=== PATIENT | male | born 2000 | race Caucasian/White ===

== ENCOUNTER 2025-02-11 02:13 | Observation (INO) | payer OTHER, SELFPAY ==
[2025-02-10 23:31] VITALS: BP 114/80; BMI 24.8
[2025-02-10 23:34] VITALS: BP 114/80
[2025-02-10 23:50] LABS: Hematocrit 41.6 % (39.0-52.0); Hemoglobin 15.1 g/dL (13.0-18.0); Mean Corp Hgb Conc. 36.3 g/dL (33.0-37.0); Mean Corpuscular Volume 90.2 fL (80.0-94.0); Nucleated Red Blood Cells % 0 % (-); Platelet Count 246 10^3/uL (130-400); Red Cell Dist. Width 12.0 % (11.5-14.5)
[2025-02-11 00:05] LABS: Blood Urea Nitrogen 13 mg/dl (9-20); Calcium 9.5 mg/dl (8.4-10.2); Carbon Dioxide 21 mmol/L (22-30); Chloride 102 mmol/L (98-107); Estimated Creatinine Clearance > 125 ml/min; Glucose 116 mg/dl (70-99); Lipase 253 U/L (23-300); Sodium 133 mmol/L (135-145); eGFR > 60.00
--- NOTE | 2025-02-11 00:08 | ED.GENMED ---
History of Present Illness
General
Chief Complaint: Abdominal Symptoms
Source: patient
Exam Limitations: none
Time Seen by Provider: 02/10/25 23:45
History of Present Illness
History of Present Illness:
See MDM
Past History
Past History
ED Past Medical History: Asthma
ED Past Surgical History: None
Social History
Tobacco: Vaping
Alcohol: None
Drug: None
Phy Exam
Physical Exam
Physical Exam:
See MDM
Course
Orders/Labs/Results
Orders:
Orders
02/10/25 23:40
EKG [Electrocardiogram (*1)] Urgent
Reason for Study: Tachycardia
EKG- Treatment ONCE
02/10/25 23:42
Basic Metabolic Panel Urgent
Complete Blood Count/With Diff Urgent
Lipase Urgent
02/10/25 23:58
STOOL [C difficile Antigen & Toxins] Urgent
DARIA Source: Feces/Stool
Specimen Description:
Date Specimen was Collected: 02/11/25
Time Specimen was Collected: 00:00
Stool Culture Urgent
DARIA Source: Feces/Stool
Specimen Description:
Date Specimen was Collected: 02/11/25
Time Specimen was Collected: 00:00
Abnormal Lab Results
02/10/25
23:42
WBC 13.6 H 10^3/uL
(4.8-10.8)
RBC 4.61 L 10^6/uL
(4.70-6.10)
MCH 32.8 H pg
(27.0-31.0)
Abs Immat Gran (auto) 0.2 H 10^3/uL
(0-0.05)
Absolute Neuts (auto) 10.1 H 10^3/uL
(1.4-6.5)
Absolute Monos (auto) 0.8 H 10^3/uL
(0.1-0.6)
Immature Gran % 1.1 H %
(0-0.5)
Lymphocytes % 16.5 L %
(20.5-51.1)
Sodium 133 L mmol/L
(135-145)
Carbon Dioxide 21 L mmol/L
(22-30)
Glucose 116 H mg/dl
(70-99)
02/10/25 23:42
02/10/25 23:42
Vital Signs
Initial and Last Documented VS:
Initial Vital Signs
Pulse Resp BP Pulse Ox
61 16 114/80 100
02/10/25 23:31 02/10/25 23:31 02/10/25 23:31 02/10/25 23:31
Last Documented Vital Signs
Pulse Resp BP Pulse Ox
61 16 114/80 100
02/10/25 23:31 02/10/25 23:31 02/10/25 23:31 02/11/25 00:14
MDM/Problems Addressed
Differential Diagnosis Includes:
HPI and MDM Narrative:
25-year-old male presenting for evaluation of diaphoresis and diarrhea. Soon after eating food at [facility], patient developed abdominal cramping which was followed by nausea, vomiting and diarrhea. Apparently, patient was tachycardic. There was
questionable SVT but this was not proven. Regardless, it self resolved. On arrival, patient states he is feeling a lot better
Patient has a very soft and nontender abdomen. I discussed with patient and father at bedside that this is less likely acute appendicitis given how well-appearing he is and how benign his abdominal exam is. Given the sudden onset of nausea and
vomiting and diarrhea after food ingestion, we discussed the possibility of food poisoning. He denies sick contacts. Will obtain basic blood work and obtain stool studies
Physical exam
General: Well appearing and non-toxic
HEENT: protecting airway
Neck: appears supple
CV: No evidence of cyanosis. Regular rate and rhythm
Resp: No accessory muscle use
Abd: Non-distended. Soft and nontender
Extremities: No deformities
Neuro: alert
Psych: Normal affect
Skin: Intact
Problems Addressed including Acute and Chronic Conditions affecting care:
1. Nausea, vomiting, diarrhea
Acuity: acute
Prognosis: stable
Details: Given the sudden onset after food ingestion, discussed likely food poisoning. Will obtain basic blood work and provide IV fluids
Updates
12:10 AM after defecating, patient became diffusely diaphoretic. He continues to have a nontender abdomen. We discussed some sort of autonomic response to his diarrhea. Will continue to monitor
During his stay, his heart rate continues to drop to the 30s. Patient states he feels unwell. It does appear to be sinus rhythm. Given his persistent symptoms, will continue IV fluids and admit for telemetry monitoring
Differential Diagnosis (but not limited to): Food poisoning, colitis, acute appendicitis
Testing considered: CT abdomen/pelvis
Drug therapy (if applicable): OTC meds, please see d/c instruction regarding Rx drugs
Amount and/or Complexity of Data Reviewed
Clinical info obtained from: Patient
External data reviewed: N/A
Labs I independently reviewed (but not limited to): Expected leukocytosis
Radiology: N/A
Pulse Ox: not hypoxic
EKG independently reviewed: Sinus rhythm, normal axis, no STEMI
Ophthalmic Aide: Sinus rhythm
Critical Care: N/A
Risk of Complication:
Social Determinants of health: Good social support
Discussed with other providers: Hospitalist
Escalation of Care includes Admit/Obs: Given his persistent symptoms and intermittent bradycardia, will admit
Occasional wrong word or 'sound a like' substitutions may have occurred due to the inherent limitations of voice recognition software. Read the chart carefully and recognize, using context, where substitutions have occurred.
*Pulse Oximetry
SaO2: 100
Oxygen Mode of Delivery: Room air
Patient hypoxic: no
*Critical Care Note
Total Time (30-74mins, 75-104mins- exclusive of procedures): Not Applicable
ED Attending Note
-
Portions of this chart may have been created with voice recognition software.� Occasional wrong word or��sound alike� substitutions may have occurred due to the inherent limitations of voice recognition software.
Discharge Plan
Departure
Patient Disposition: Admit
Date of Disposition: 02/11/25
Time of Disposition: 01:44
Admit to: Med/Surg
Presentation/result/management discussed w/ accepting MD/DO: Hospitalist
Discharge Problem:
Nausea, vomiting and diarrhea, Bradycardia
Prescriptions:
No Action
ondansetron 4 MG tablet,disintegrating
4 mg PO TIDPRN PRN (Reason: nausea/vomiting) Qty: 9 0RF
cetirizine 10 MG tablet
10 mg PO DAILYPRN PRN (Reason: allergies)
fluticasone propionate 1 SPRAY spray,suspension
2 spray intranasal BIDPRN PRN (Reason: allergies)
Referrals:
Aisha Grider CRNP [Family Provider, Family Practice]
Interventions
Interventions:
*Risk Screen - Suicide Last Done: 02/10/25 23:31
*General Assessment Last Done: 02/10/25 23:31
*Neglect/Abuse Screening Last Done: 02/10/25 23:31
*ED- Fall Risk Assessment Last Done: 02/10/25 23:31
*ED COVID-19 Vaccine History Last Done: 02/10/25 23:31
Discharge Date and Time
Print Language: GEORGIAN
--- NOTE | 2025-02-11 02:05 | HPS.HSE ---
Family Physician
-
Family Physician: LEONOR Chan
Chief Complaint
-
N/V/D
History of Present Illness
Patient is a 25y M with PMH significant for anxiety and asthma who presents to ED complaining of N/V/D. Patient states that he went out for dinner this evening at [facility]. Her returned home and approximately 45-60 minutes following dinner he
developed sudden onset of nausea with multiple episodes of non-bloody emesis, crampy abdominal pain and frequent / loose stools. He became lightheaded and diaphoretic. His symptoms persisted and he presented to the ED for further evaluation and
treatment.
Medical History
Past Medical History
Past Medical History: Reports Other
Additional Past Medical History:
Anxiety / Depression
Asthma
Past Surgical History: Reports None
Social History
Tobacco: Former Smoker (Quit smoking 2-3 years ago. < 5 pack years total use.)
Alcohol: Occasional
Drug: Marijuana (Occasional.)
Family History
Family History: Not pertinent
Allergies / Home Medications
Allergies reflects when Allergies were last updated in [employer].
Home Medications with original date entered in [employer]
Allergy/Medication List:
Allergies
Allergy/AdvReac Type Severity Reaction Status Date / Time
Penicillins Allergy Rash Verified 02/10/25 23:44
Home Medications
escitalopram oxalate 10 mg tablet (Lexapro) 10 mg PO DAILY 02/11/25
montelukast 10 mg tablet 10 mg PO DAILY 02/11/25
Review of Systems
-
History Source: Patient
A 12 point ROS was completed and negative except as noted: Yes
Constitutional: Reports Fatigue; Denies Fever or Chills
EENT: Denies Sore Throat
Respiratory: Denies Cough or Trouble Breathing
Cardiac: Reports Diaphoresis; Denies Chest Pain or Palpitations
Abdomen/GI: Reports Abdominal Pain, Nausea, Vomiting and Diarrhea
: Denies Dysuria or Frequency
Musculoskeletal: Denies Joint Pain or Edema
Neurological: Denies Dizzy or Headache
Psych: Denies Depression or Anxiety
Physical Exam
Vital Signs
Vital Signs
Pulse Resp BP Pulse Ox
61 16 114/80 100
02/10/25 23:31 02/10/25 23:31 02/10/25 23:31 02/11/25 00:14
Physical Exam
General: Other (25y M in mild distress due to nausea / diaphoresis.)
HEENT: Other (Dry MM, neck supple.)
Respiratory: Clear; No Wheezes, Rales or Rhonchi
Cardiac: S1/S2 and Regular Rhythm; No Murmur
GI: Soft, Non Tender, Non Distended and Normal Bowel Sounds
Musculoskeletal: No Clubbing, No Cyanosis and No Edema
Neuro: AO x 3
Laboratory Results
-
02/10/25 23:42
Laboratory Results
Total Bilirubin Cancelled 02/10/25 23:42
AST Cancelled 02/10/25 23:42
ALT Cancelled 02/10/25 23:42
Alkaline Phosphatase Cancelled 02/10/25 23:42
Lipase 253 U/L (23-300) 02/10/25 23:42
Impression/Plan
-
A/P: Patient is a 25y M with PMH significant for asthma and anxiety who presents to ED complaining of N/V/D.
Acute Gastroenteritis
- Observe overnight for further evaluation and treatment.
- Suspected foodborne pathogen - though fairly quick onset after evening meal.
- Supportive care with IVFs, antiemetics, etc.
- Follow for clinical improvement.
- Follow-up results of stool cultures.
Bradycardia
Diaphoresis
- Likely vasovagal effect due to acute GI distress.
- Reportedly with heart rates into the 30s at times in the ED (verbal report from provider).
- Treat acute symptoms as noted above.
- Monitor on tele overnight.
Mild Intermittent Asthma
- Stable. Continue montelukast.
- Rare rescue inhaler use per patient. Albuterol PRN.
Anxiety / Depression
- Stable. Continue Lexapro.
DVT Prophylaxis: SCDs
Code Status: Full
[2025-02-11 02:48] LABS: Potassium 4.1 mmol/L (3.5-5.1)
[2025-02-11 03:18] VITALS: BP 104/73; BMI 24.0
--- NOTE | 2025-02-11 03:18 | PTCARENOTE ---
Pt arrived onto floor @0318. Pt AAOx3 and able to ambulate into room without assistance. Pt with no complaints of pain or SOB at this time. Pt oriented to room and call baker; will continue to monitor
[2025-02-11] MEDS: NSS 1000 IV ×2 (03:31→10:36)
[2025-02-11 06:36] LABS: Hematocrit 37.9 % (39.0-52.0); Hemoglobin 13.6 g/dL (13.0-18.0); Mean Corp Hgb Conc. 35.9 g/dL (33.0-37.0); Mean Corpuscular Volume 89.8 fL (80.0-94.0); Platelet Count 224 10^3/uL (130-400); Red Cell Dist. Width 11.8 % (11.5-14.5)
[2025-02-11 06:59] LABS: Blood Urea Nitrogen 10 mg/dl (9-20); Calcium 9.2 mg/dl (8.4-10.2); Carbon Dioxide 27 mmol/L (22-30); Chloride 107 mmol/L (98-107); Estimated Creatinine Clearance > 125 ml/min; Glucose 113 mg/dl (70-99); Potassium 5.5 mmol/L (3.5-5.1); Sodium 138 mmol/L (135-145); eGFR > 60.00
[2025-02-11 07:44] VITALS: BP 116/64
[2025-02-11] MEDS: LEXAPRO 10 MG PO (08:50)
[2025-02-11] MEDS: SINGULAIR 10 MG PO (08:50)
[2025-02-11 11:00] VITALS: BP 104/61; BP 108/52; BP 110/59; PULSE 52; PULSE 60; PULSE 68
--- NOTE | 2025-02-11 13:48 | W.PN.HOSP.TC ---
Today's Communication/Plan
-
dc to home later today
Assessment / Plan
Assessment / Plan
assessment:
Acute Gastroenteritis
- Suspected foodborne pathogen - though fairly quick onset after evening meal.
- Supportive care with IVFs, antiemetics, etc.
- diet: BRAT for today then gradually can resume usual diet
- C. Diff negative
Bradycardia
Diaphoresis
- Likely vasovagal effect due to acute GI distress.
- Reportedly with heart rates into the 30s at times in the ED (verbal report from provider).
- Treat acute symptoms as noted above.
- mildly bradycardic into today, denies symptoms. tele is Sinus bradycardia
Mild Intermittent Asthma
- Stable. Continue montelukast.
- Rare rescue inhaler use per patient. Albuterol PRN.
Anxiety/Depression
- Stable. Continue Lexapro.
DVT Prophylaxis: SCDs
Code Status: Full
More than 30 minutes spent in discharge including
Final examination of the patient
Summarizing hospital stay
Instructions for continuing care to all relevant caregivers
Preparation of discharge records, prescriptions, and referral forms
Total time spent (in minutes): 41
Anticipated Discharge: Today
Subjective/Interval History
-
Date of Service: February 11, 2025
nausea/vomiting resolved
denies abd pain
last BM was loose and upon arrival in ER, none since
has since tolerated diet
Objective Data
-
Labs:
Laboratory Results
02/11/25 02/11/25 02/11/25
01:58 02:24 06:23
WBC 7.5
Hgb 13.6
Hct 37.9 L
Plt Count 224
Sodium 138
Potassium Cancelled 4.1 5.5 H D
Chloride 107
Carbon Dioxide 27
BUN 10
Creatinine 0.9
Glucose 113 H
Calcium 9.2
02/11/25 02/11/25
13:24 14:00
WBC
Hgb
Hct
Plt Count
Sodium Pending Cancelled
Potassium Pending Cancelled
Chloride Pending Cancelled
Carbon Dioxide Pending Cancelled
BUN Pending Cancelled
Creatinine Pending Cancelled
Glucose Pending Cancelled
Calcium Pending Cancelled
Vital Signs:
Vital Signs
Temp Pulse Resp BP Pulse Ox
98.1 F 52 18 108/52 99
02/11/25 11:00 02/11/25 11:00 02/11/25 11:00 02/11/25 11:00 02/11/25 11:00
I&O
02/10/25 02/11/25 02/12/25
06:59 06:59 06:59
Intake Total 0 / 0
Balance 0 / 0
Physical Exam
-
General: No Apparent Distress
HEENT: Normocephalic and Atraumatic
Respiratory: Negative Wheezes
Cardiac: Regular Rhythm and S1/S2
GI: Soft and Nontender
Musculoskeletal: No Edema
Neuro: AO x 3
Psych: Calm
Data Reviewed
-
Total Time Spent with Patient (in minutes): 41
Labs: Labs Reviewed by me
--- NOTE | 2025-02-11 13:54 | W.DCSUMMARY ---
Discharge Summary
Discharge Data
Date of Admission: 02/11/25
Date of Discharge: 02/11/25
Total time spent discharging patient (in min): 42
-
Pending Results: No
Hospital Course
25y M with PMH significant for anxiety and asthma who presents to ED complaining of N/V/D about an hours after eating dinner at [facility]. He suddenly developed nausea along with multiple episodes of emesis, cramping abdominal pain and loose
stools. He was lightheaded and diaphoretic prompting ER evaluation. In, ER his symptoms persisted, he was also noted to have sinus bradycardia as a vagal response to his GI upset. He was observed overnight and given IVF and supportive care. Later on
02/11, his symptoms had improved and he was tolerating a diet. He was discharged home in stable condition.
Discharge Plan
-
Patient Disposition: Home (Routine Discharge)
Discharge Diagnosis/Procedures: acute gastroenteritis likely food borne illness
Condition: Fair
Diet: BRAT
Additional Diets: light diet for today, then starting tomorrow morning can gradually advance to usual/regular diet
Activity: No restrictions
Referrals:
Aisha Grider CRNP [Family Provider, Family Practice]
Prescriptions:
Continued
montelukast 10 mg Tablet
10 mg PO DAILY
escitalopram oxalate [Lexapro] 10 mg Tablet
10 mg PO DAILY
Discharge Orders:
Discharge Patient (As Directed); Ordered 02/11/25
Ordered By: Linh Morris
Discharge Date and Time
Print Language: MALIAN
[2025-02-11 14:00] LABS: Blood Urea Nitrogen 7 mg/dl (9-20); Calcium 8.9 mg/dl (8.4-10.2); Carbon Dioxide 25 mmol/L (22-30); Chloride 108 mmol/L (98-107); Estimated Creatinine Clearance > 125 ml/min; Glucose 92 mg/dl (70-99); Potassium 4.6 mmol/L (3.5-5.1); Sodium 138 mmol/L (135-145); eGFR > 60.00
--- NOTE | 2025-02-11 14:23 | CM ---
Met with patient to obtain information for assessment. Patient stated that he lives with his mother and father in a two story home with no steps to enter. He described himself as independent with his ADLs, personal care, dressing and bathing. He
can cook, clean, do payroll benefits clerk and laundry. Patient can drive and can get to his appointments and do all of his own shopping. Patient has no DME. He has never had VN services. He has never been to a SNF.
Patient has a prescription plan and uses, [facility] for all of his medications.
Patient's PCP is, Aisha Grider.
Plan: Case management will continue to follow and assist with discharge planning. Home.
== END 2025-02-11 14:44 | disposition home or self-care (01) ==
LOC: 4 WEST ACU 02:13
PROVIDERS: Emergency Medicine; ADMITTING PHYSICIAN Hospitalist; ATTENDING PHYSICIAN Internal Medicine; EMERGENCY PHYSICIAN Student in an Organized Health Care Education/Training Program; FAMILY PHYSICIAN Nurse Practitioner
DX: K52.9 Noninfective gastroenteritis and colitis, unspecified (principal); R00.1 Bradycardia, unspecified; F17.290 Nicotine dependence, other tobacco product, uncomplicated; F32.A Depression, unspecified; F41.9 Anxiety disorder, unspecified; J45.20 Mild intermittent asthma, uncomplicated; Z79.899 Other long term (current) drug therapy
CPT/HCPCS: 80048; 80053; 83690; 84132; 84443; 85025; 85027; 87045; 87046; 87324; 87427; 87449; 93005; 99285; G0378